=== PATIENT | female | born 1945 | race Caucasian/White ===

== ENCOUNTER → 2018-05-27 09:45 | Outpatient (CLI) | payer OTHER, SELFPAY ==
--- NOTE | 2018-05-27 | DI.MRI.S_ITS ---
PROCEDURE: MR CERVICAL SPINE WO CON INDICATIONS: CERVICAL RADICULOPATHY TECHNIQUE: Noncontrast sagittal T1 spin echo and T2 fast spin echo, sagittal STIR, foraminal oblique sagittal T2 fast spin echo, and axial gradient echo or T2 fast spin echo through the cervical spine. COMPARISON: [facility], MR, C-SPINE WITHOUT CONTRAST, 12/30/2011, 14:32. [facility] [place], CR, XR CERVICAL SPINE 2 OR 3 VIEWS, 05/10/2018, 14:03. FINDINGS: Image quality: Excellent. Alignment and Curvature: There is norm loss of normal cervical lordosis. There is mild grade 1 anterolisthesis of C7 on T1. Bone Marrow: Marrow demonstrates normal overall signal. There is a rudimentary physis of the base of the odontoid process. Mild reactive signal within the endplates adjacent to the C7-T1 intervertebral disc. Spinal Cord: Visualized spinal cord has normal size and signal. No cerebellar tonsillar herniation. Paraspinous Soft Tissues: No paravertebral masses. Prevertebral soft tissues are normal in thickness. C2-C3: Mild disc desiccation. Small central protrusion. Mild facet of urgency. Mild canal stenosis. No foraminal stenosis. No change. C3-C4: Congenital canal stenosis. Mild disc height loss and desiccation. Mild diffuse disc bulge with superimposed small broad-based left far lateral protrusion. Mild facet and uncovertebral hypertrophy. Moderate canal stenosis. Moderate left and mild right foraminal stenosis. No change. C4-C5: Congenital canal stenosis. Mild discoid loss and desiccation. Mild diffuse disc bulge with superimposed small central protrusion. Mild facet and uncovertebral hypertrophy bilaterally. Increased, moderate to severe canal stenosis. New minimal anterior cord flattening. Mild bilateral foraminal stenosis is unchanged. C5-C6: Mild disc height loss and desiccation. Mild diffuse disc bulge. Congenital canal stenosis. Bilateral facet and uncovertebral hypertrophy. Increased, moderate canal stenosis. No change in moderate left and mild right foraminal stenosis. C6-C7: Congenital canal stenosis. Mild disc height loss and desiccation. Mild facet and uncovertebral hypertrophy. Mild canal stenosis. Mild bilateral foraminal stenosis. No change. C7-T1: Mild disc height loss and desiccation. Mild facet and uncovertebral vertebrae. No significant canal, nor foraminal stenosis. IMPRESSION: 1. 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 2. Multilevel canal stenoses, worse at C4-C5, where there is new minimal cord flattening. 3. Multilevel foraminal stenoses, worst at C3-C4 on the left, and at C5-C6 on the left, where there are moderate foraminal stenoses. Dictated by: Zach Yuen M.D. on 05/27/2018 at 11:07 Approved by: Zach Yuen M.D. on 05/27/2018 at 11:12
== END ==
PROVIDERS: PCP Student in an Organized Health Care Education/Training Program; Visit Provider Orthopaedic Surgery
DX: M54.12 Radiculopathy, cervical region (principal)
CPT/HCPCS: 72141